=== PATIENT | female | born 1950 | race Caucasian/White ===

== ENCOUNTER 2017-11-02 19:02 | Emergency (ER) | payer MEDICARE ==
[~2017-11-02] VITALS: Ht 157.5 cm; Wt 62.1 kg
[2017-11-02] MEDS ORDERED: IBUP800 PO (20:04)
[2017-11-02] MEDS ORDERED: Norco 5-325 Ta1 EACH PO (20:04)
== END 2017-11-02 20:31 | disposition home or self-care (01) ==
LOC: ER 19:02
DX: G89.29 Other chronic pain (principal); M54.5 Low back pain; Z88.0 Allergy status to penicillin; Z88.5 Allergy status to narcotic agent; Z88.8 Allergy status to other drugs, medicaments and biological substances
CPT/HCPCS: 96372; 99283; J1885